=== PATIENT | female | born 1935 | race African-American/Black ===

== ENCOUNTER → 2017-01-16 | Day surgery (SDC) | payer MEDICARE ==
[~2017-01-16] MED LIST: BUPIVACAINE/EPINEPHRINE 0.25% 50 ML VIAL ONE; BUPIVACAINE/EPINEPHRINE 0.5% PF 30 ML VIAL ONE; LACTATED RINGER'S 1000 ML INJ 1,000 ML ONE; MSM750CA PO; ONDANSETRON HCL 4 MG/2 ML VIAL IV PUSH ONE; PROPOFOL 200 MG/20 ML AMP IV ONE; TAB-TAB PO; TYLE3 PO; ceFAZolin 2 GM PREMIX 50 ML ONE
--- NOTE | 2017-01-16 12:19 | TN ---
cc: GENARO RICHMOND M.D. DATE OF SURGERY: 01/16/2017 PREOPERATIVE DIAGNOSIS 1. Left axillary mass. 2. History of DCIS right breast. POSTOPERATIVE DIAGNOSIS 1. Left axillary mass. 2. History of DCIS right breast. PROCEDURE PERFORMED Wide local excision, left axillary mass. SURGEON Genaro Richmond ANESTHESIA General LMA. COMPLICATIONS None. INDICATION FOR PROCEDURE Ms. Carter is a very pleasant 81-year-old -[place] female who was noted to have an enlarging concerning left axillary mass. 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 She was offered wide local excision of the mass for diagnostic and therapeutic purposes. The risks and benefits were discussed with her in detail and she was agreeable. DETAILS OF PROCEDURE The patient was identified, brought to the operating room and placed supine on the operating table. After adequate general anesthesia was achieved with LMA, the left axilla was prepped and draped in standard surgical fashion. A 2 x 6 cm elliptical incision was drawn out around the mass in the left axilla. 0.25% Marcaine was then injected in the skin and subcutaneous tissue around the mass. An elliptical skin incision was then made. The skin and subcutaneous fat were excised in toto completely around the mass. The mass was then labeled with a short stitch superior, long stitch lateral, and sent to pathology for analysis. The wound was then irrigated with normal saline solution. The wound was then closed in two layers using 3-0 Vicryl and 4-0 Vicryl. Sterile dressings were applied. The patient was awakened and brought to Recovery in stable condition. MD DEIDRA Cisneros/BHAVNA /12:00 PM /12:14 PM
== END | disposition home or self-care (01) ==
LOC: ESDC 09:28
PROVIDERS: ATTEND Surgery Trauma Surgery
DX: R22.2 Localized swelling, mass and lump, trunk (principal); Z86.000 Personal history of in-situ neoplasm of breast
CPT/HCPCS: 00400; 21552; 88307; J0690; J2405; J3010; J7120